=== PATIENT | female | born 1930 | race Caucasian/White ===

== ENCOUNTER 2021-06-30 18:41 | Emergency (ER) | payer OTHER, MEDICARE ==
[2021-06-30] MEDS ORDERED: ASPIRIN 81 MG CHEWABLE TABLETS PO ONE (20:07)
[2021-06-30] MEDS ORDERED: ASPIRIN 81 MG CHEWABLE TABLETS ONE (20:11)
[2021-06-30 21:00] LABS: BASO % 0.4 % (0-2.0); EOS % 0.1 % (0-4.5); HEMATOCRIT 41.2 % (32.4-45.2); HEMOGLOBIN 13.1 GM/dL (10.7-15.3); LYMPH % 5.7 % (8-40); MCH 28.4 pg (25.7-33.7); MCHC 31.9 g/dl (32.0-36.0); MEAN PLT VOLUME 10.3 fl (7.5-11.1); MONO % 1.6 % (3.8-10.2); NEUT % 92.2 % (42.8-82.8); PLATELET COUNT 203 10^3/uL (134-434); RBC 4.63 M/mm3 (3.60-5.2); RDW 14.8 % (11.6-15.6); WHITE BLOOD COUNT 5.4 K/mm3 (4.0-10.0)
[2021-06-30 21:15] LABS: CHLORIDE 101 mmol/L (98-107); INR 1.18 (0.83-1.09); PROTHROMBIN TIME (PATIENT) 13.6 SEC (9.7-13.0); SODIUM 137 mmol/L (136-145)
[2021-06-30 21:17] LABS: ACTIVATED PTT 41.4 SECONDS (25.2-36.5)
[2021-06-30 21:18] LABS: ALBUMIN 3.1 g/dl (3.4-5.0); ANION GAP 6 MMOL/L (8-16); CO2 30 mmol/L (21-32); GLUCOSE,RANDOM 165 mg/dL (74-106)
[2021-06-30 21:21] LABS: CREATININE 0.6 mg/dL (0.55-1.3); SGOT/AST 26 U/L (15-37); SGPT/ALT 29 U/L (13-61)
[2021-06-30 21:23] LABS: ALK PHOS 115 U/L (45-117); BILIRUBIN,TOTAL 0.4 mg/dL (0.2-1); TOT PROT 6.5 g/dl (6.4-8.2)
[2021-06-30] MEDS ORDERED: CLOPIDOGREL BISULFATE 300 MG TABLET PO ONE (21:31)
[2021-06-30] MEDS ORDERED: CLOPIDOGREL BISULFATE 300 MG TABLET ONE (21:35)
[2021-06-30 21:47] LABS: ANISOCYTOSIS 0; MACROCYTOSIS 0
[2021-07-01] MEDS ORDERED: HALOPERIDOL LACTATE 5 MG/ML IM ONE (05:29)
[2021-07-01] MEDS ORDERED: HALOPERIDOL LACTATE 5 MG/ML ONE (05:50)
[2021-07-01 10:06] VITALS: PULSE 87
[2021-07-01 10:11] VITALS: BP 157/77; TEMP 97.8
== END 2021-07-01 10:16 | disposition short-term general hospital (02) ==
LOC: JER 18:41
PROC: 3E023GC Introduction of Other Therapeutic Substance into Muscle, Percutaneous Approach (ICD-10-PCS; principal; 2021-06-30)
DX: U07.1 COVID-19 (principal); R06.02 Shortness of breath; R94.31 Abnormal electrocardiogram [ECG] [EKG]
CPT/HCPCS: 36415; 71045-TC-FY; 80053; 84484; 85025; 85610; 85730; 86850; 86900; 86901; 93005; 93010; 96372; 99285-25; C9803-CS; U0003; U0005